=== PATIENT | female | born 1980 | race Caucasian/White ===

== ENCOUNTER 2019-01-10 05:17 | Inpatient (IN) ==
--- NOTE | 2019-01-09 16:53 | HISTORY AND PHYSICAL ---
HISTORY OF PRESENT ILLNESS: Patient 38-year-old female, G4, P1, A2, who is at 39 weeks gestation with a history of prior , for elective repeat . care is significant for advanced maternal age. Patient desires tubal sterilization. Tobacco: Positive use during care. Rubella status is nonimmune, and group B Streptococcus status was negative. PAST MEDICAL HISTORY: Significant for a prescription for Subutex that was used to during the course of her care. PAST SURGICAL HISTORY: Significant for x1. PAST OBSTETRICAL HISTORY: G4, P1, A2. Spontaneous AB x2. x1. GYNECOLOGICAL HISTORY: Menarche at age 16. REVIEW OF SYSTEMS: All systems reviewed and noncontributory. FAMILY HISTORY: Significant for ALS. SOCIAL HISTORY: Tobacco use: A half-pack per day. Alcohol use: None. MEDICATIONS: Subutex somewhere between 4 to 8 mg daily and the patient takes a vitamin daily. ALLERGIES: Keflex and Ceclor. PHYSICAL EXAMINATION: HEIGHT/WEIGHT: Height 5 feet 0 inches. Weight 131 pounds. VITAL SIGNS: Blood pressure 124/75, pulse of 72, respirations 20. heart rate 123. HEENT: Pupils equal, round, and reactive to light and accommodation. Extraocular movements intact. Oropharynx clear. NECK: Supple. No thyromegaly. LUNGS: Clear to auscultation. HEART: Regular rate and rhythm. ABDOMEN: Gravid. Nontender. EXTREMITIES: No clubbing, cyanosis, or edema noted. NEUROLOGIC: Cranial nerves 2 through 12 grossly intact. Motor 5/5. DTRs 2+ bilaterally. ASSESSMENT AND PLAN: 1. This is a 38-year-old, 4, parity 1, abortus 2, at 39 weeks gestation with history of prior section for elective repeat section. Patient counseled about the risks of surgery, including bleeding, infection, bowel or bladder injury. 2. Permanent sterilization. Patient has expressed desire for permanent sterilization and has signed tubal papers. Patient counseled about the permanency of the procedure, failure rate of 2 to 4 per 1000, as well as the availability of reversible alternatives, such as IUD, control pills, patches, etc. DATE OF SURGERY: Scheduled for 01/10/2019. cc: Edmar Patrick III, MD
[2019-01-10] MEDS ORDERED: BICITRA PO ONE (05:23)
[2019-01-10] MEDS ORDERED: CLINDAMYCIN 900 MG/D5W 900 MG/50 ML IVPB IV ONE (05:23)
[2019-01-10] MEDS: LR 1,000 ML IV SCH ×2 (05:40→07:02)
[2019-01-10 06:05] LABS: URINE SOURCE VOIDED
[2019-01-10 06:11] LABS: BILIRUBIN URINE NEGATIVE (NEGATIVE); BLOOD URINE NEGATIVE (NEGATIVE); CLARITY CLEAR (CLEAR); COLOR YELLOW; GLUCOSE URINE NEGATIVE (NEGATIVE); KETONE URINE NEGATIVE (NEGATIVE); LEUKOCYTES URINE NEGATIVE (NEGATIVE); NITRITE URINE NEGATIVE (NEGATIVE); PH URINE 6.5; PROTEIN URINE NEGATIVE (NEGATIVE); UROBILINOGEN URINE NORMAL
[2019-01-10] MEDS ORDERED: ZOFRAN ONE (06:30)
[2019-01-10] MEDS ORDERED: NEO-SYNEPHRINE ONE (06:30)
[2019-01-10] MEDS ORDERED: PITOCIN ONE ×2 (06:30→08:14)
[2019-01-10] MEDS ORDERED: DURAMORPH ONE (06:31)
[2019-01-10] MEDS ORDERED: SODIUM CHLORIDE 0.9% 20 ML ONE (06:34)
[2019-01-10 06:35] LABS: UR AMPHETAMINES QUAL NONE DETECTED (NONE DETECT); UR BARBITUATES QUAL NONE DETECTED (NONE DETECT); UR BENZODIAZEPIN QUAL NONE DETECTED (NONE DETECT); UR CANNABINOIDS QUAL NONE DETECTED (NONE DETECT); UR COCAINE QUAL NONE DETECTED (NONE DETECT); UR METHADONE QUAL NONE DETECTED (NONE DETECT); UR METHAMPHETAMINE QUAL NONE DETECTED (NONE DETECT); UR OPIATES QUAL NONE DETECTED (NONE DETECT); UR OXYCODONE QUAL NONE DETECTED (NONE DETECT); UR PCP QUAL NONE DETECTED (NONE DETECT); UR PROPOXYPHENE QUAL NONE DETECTED (NONE DETECT); UR TCA QUAL NONE DETECTED (NONE DETECT)
[2019-01-10 07:05] LABS: BASO# 0.05 X1000 (0.0-0.2); BASO% 0.3 % (0.0-0.8); EOS% 1.4 % (0.0-10.0); HEMATOCRIT 39.1 % (37.0-47.0); HEMOGLOBIN 13.1 g/dL (12.0-16.0); IMM GRAN# 0.31 X1000 (0.0-0.04); IMM GRAN% 2.1 % (0.0-0.5); LYMPH# 3.31 X1000 (1.2-3.4); LYMPH% 22.8 % (20.5-51.1); MCH 28.9 PG (27-31); MCHC 33.5 g/dL (33-37); MCV 86.3 FL (81-99); MONO# 0.93 X1000 (0.11-0.59); MONO% 6.4 % (1.7-9.3); MPV 12.6 FL (7.4-10.4); PLT 179 X1000 (130-400); RBC 4.53 XMIL (4.2-5.4); RDW 13.1 % (11.5-14.5)
[2019-01-10] MEDS ORDERED: FENTANYL ONE (07:45)
[2019-01-10] MEDS ORDERED: AMBIEN PO PRN (08:26)
[2019-01-10] MEDS ORDERED: MYLICON PO PRN (08:26)
[2019-01-10] MEDS ORDERED: DEMEROL PO PRN ×2 (08:26)
[2019-01-10] MEDS ORDERED: DEMEROL IM PRN (08:26)
[2019-01-10] MEDS ORDERED: PHENERGAN IM PRN (08:26)
[2019-01-10] MEDS ORDERED: PITOCIN 20 UNITS/NS 20 UNITS/1,000 ML IV.SOLN IV ONE (08:26)
[2019-01-10] MEDS ORDERED: PITOCIN IM PRN (08:26)
[2019-01-10] MEDS ORDERED: DULCOLAX PR PRN (08:26)
[2019-01-10] MEDS ORDERED: M-M-R II VACCINE SUBQ ONE (08:26)
[2019-01-10] MEDS ORDERED: BOOSTRIX VACCINE IM ONE (08:26)
[2019-01-10] MEDS ORDERED: NORCO-5 PO PRN (08:26)
[2019-01-10] MEDS ORDERED: HYDROXYZINE IM PRN (08:26)
[2019-01-10] MEDS ORDERED: PITOCIN 10 UNITS/NS 1,000 ML IV SCH (08:30)
[2019-01-10] MEDS: MYLICON PO SCH ×4 (09:16→22:10)
[2019-01-10] MEDS: PRECARE PO SCH (09:17)
[2019-01-10] MEDS: TORADOL IV SCH ×3 (09:49→22:10)
[2019-01-10] MEDS: MORPHINE IV PRN (12:16)
[2019-01-10] MEDS: SUBUTEX SL SCH (12:56)
[2019-01-10] MEDS: ATARAX PO PRN (12:57)
--- NOTE | 2019-01-10 15:26 | OPERATIVE NOTE ---
PROCEDURE DATE: 01/10/2019 PREOPERATIVE DIAGNOSIS: Intrauterine (IUP) at 39 and 0/7 weeks with history of C- section. For elective repeat section. Patient also desires permanent sterilization. POSTOPERATIVE DIAGNOSIS: Same as above with operative delivery of a female infant, 6 pounds 3 ounces, with 's of 9 and 10 at 0750 on 01/19/2019. PROCEDURE: Repeat low transverse and bilateral tubal ligation. SURGEON: MD Darnell. ASSIST: MD Carlos. ANESTHESIA: Spinal. MD Ismael. FINDINGS: Normal-appearing uterus, tubes and ovaries. COMPLICATIONS: None. ESTIMATED BLOOD LOSS: 400 mL. SPECIMENS: Removed. Right and left fallopian tube segments. DRAINS: Chaney to straight drain. COUNTS: All counts were correct x 3. INDICATIONS: Patient is a 38-year-old white female, G4, P1, A2, 39 weeks gestation with a history of prior who expressed desire for permanent sterilization after delivery. Patient counseled about the risks of surgery including bleeding, infection, bowel or bladder injury. Patient also counseled about the permanency of tubal ligation, failure rate of 2 to 10/999, as well as the availability of of reversible alternatives such as IUD, control pills, patches, etc. PROCEDURE DETAILS: Patient was taken to the Labor and Delivery OR, had spinal anesthesia placed and was placed in supine position with a roll under right hip. She was then prepped and draped in sterile fashion. Adequate anesthesia was noted by using Allis clamps on skin A Pfannenstiel skin incision was made in the lower abdomen using a scalpel. This was taken down sharply to the fascia layer. Fascia layer was then dissected and the incision was extended bilaterally by curved Byrd scissors and then blunt and sharp dissection was used to dissect superior and inferior aspects of the rectus fascia. Rectus muscles were then divided in midline. Peritoneal layer was entered bluntly. The peritoneal incision was extended superiorly and inferiorly with care taken to avoid the bladder. Bladder reflection was created using Metzenbaum scissors. Bladder blade was then placed into the abdominal cavity and then a transverse incision was made on lower uterine segment. Then, upon entry into the uterine cavity there was meconium-stained fluid noted. The hysterotomy incision was extended bilaterally by surgeon's fingers, the head was then elevated toward the hysterotomy site and with gentle fundal pressure the head was delivered atraumatically and bulb suctioned of nose and mouth. The rest of the body was delivered atraumatically with gentle fundal pressure. The umbilical cord was clamped twice and cut. Infant handed to nurse in attendance for delivery. Cord blood sample obtained at this time. Placenta was then manually extracted. Uterus was exteriorized. Wet lap was placed around the uterus. Dry lap was then used to curette the uterine cavity of clots and debris. Uterine incision was then closed using 0 chromic in a running, locking fashion x 1. Oozing noted on the left side of the incision, made hemostatic with [id number] stitches of 0 chromic. At this point in time, attention was then turned to the fallopian tubes and right fallopian tube was grasped near the isthmus. Small hole was made in the mesosalpinx and then the area of the tube was then ligated using 0 plain suture. This ligated portion was then excised using Metzenbaum scissors. Electrocautery was then used to cauterize the open ends of the fallopian tube and good hemostasis was noted. Attention was then turned to the left fallopian tube which was also grasped near the isthmus and the mesosalpinx was penetrated using electrocautery. 0 plain suture was then used to ligate a portion of the fallopian tube and then the Metzenbaum scissors then used to excise this portion of the fallopian tube and this was handed off to be placed in a specimen container. Electrocautery was used on the open ends of the fallopian tube and once again good hemostasis was noted. The posterior cul-de-sac was then irrigated copiously. The uterus was then replaced back into the abdominal cavity. Pericolic gutters were cleansed using moist lap sponge. The uterine incision and bladder reflection were inspected and good hemostasis was noted. The peritoneal layer was then closed using 2-0 chromic in a running fashion x 1. Then, the rectus muscle had two interrupted stitches of 2-0 chromic for closure. The fascia layer was then closed using 0 PDS in a running fashion x1. Subcutaneous layer was irrigated and then electrocautery was used to obtain hemostasis. The skin was then reapproximated using tremayne. Patient tolerated the procedure well. Was taken recovery room stable condition. All counts were correct x 3. cc: Edmar Patrick III, MD
[2019-01-10] MEDS: PITOCIN 10 UNITS/NS 1,000 ML IV SCH (17:07)
--- NOTE | 2019-01-10 19:44 | OB/GYN PROGRESS NOTE ---
Progress Note LEAD APPLIER - . 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 Progress Note: Vital Signs - 24 hr 01/10/19 05:50 01/10/19 08:30 01/10/19 08:40 Temperature 97.7 F 96.9 F L Pulse Rate 85 70 83 Respiratory Rate 20 20 20 Blood Pressure 139/85 97/54 Blood Pressure [Left Arm] 96/57 103/58 O2 Sat by Pulse Oximetry 99 97 97 01/10/19 08:50 01/10/19 09:00 01/10/19 09:10 Temperature Pulse Rate 64 67 59 L Respiratory Rate 20 20 20 Blood Pressure Blood Pressure [Left Arm] 112/67 116/70 117/58 O2 Sat by Pulse Oximetry 99 97 98 01/10/19 09:20 01/10/19 09:30 01/10/19 11:00 Temperature Pulse Rate 63 55 L 58 L Respiratory Rate 20 20 20 Blood Pressure 135/63 148/72 Blood Pressure [Left Arm] 122/63 O2 Sat by Pulse Oximetry 98 99 98 01/10/19 16:11 Temperature 98.4 F Pulse Rate 50 L Respiratory Rate 14 Blood Pressure 116/56 Blood Pressure [Left Arm] O2 Sat by Pulse Oximetry 96 Laboratory Results - last 24 hr 01/10/19 01/10/19 01/10/19 05:00 05:00 05:40 WBC RBC Hgb Hct MCV MCH MCHC RDW Std Deviation Plt Count MPV Immature Gran % (Auto) Neut % (Auto) Lymph % (Auto) Spencer % (Auto) Eos % (Auto) Baso % (Auto) Immature Gran # (Auto) Neut # (Auto) Lymph # (Auto) Spencer # (Auto) Eos # (Auto) Baso # (Auto) Urine Source VOIDED Urine Color YELLOW Urine Clarity CLEAR Urine pH 6.5 Ur Specific [place] 1.010 Urine Protein NEGATIVE Urine Ketones NEGATIVE Urine Blood NEGATIVE Urine Nitrite NEGATIVE Urine Bilirubin NEGATIVE Urine Urobilinogen NORMAL Urine WBC NEGATIVE Urine Glucose NEGATIVE Urine Opiates Screen NONE DETECTED Ur Oxycodone Screen NONE DETECTED Urine Methadone Screen NONE DETECTED U Propoxyphene Qual NONE DETECTED Ur Barbituates Screen NONE DETECTED Ur Tricyclics Screen NONE DETECTED Ur Phencyclidine Scrn NONE DETECTED Ur Amphetamines Screen NONE DETECTED U Methamphetamines Scrn NONE DETECTED U Benzodiazepines Scrn NONE DETECTED Urine Cocaine Screen NONE DETECTED U Cannabinoids Screen NONE DETECTED RPR NON-REACTIVE Blood Type Antibody Screen 01/10/19 01/10/19 05:40 05:40 WBC 14.50 H RBC 4.53 Hgb 13.1 Hct 39.1 MCV 86.3 MCH 28.9 MCHC 33.5 RDW Std Deviation 13.1 Plt Count 179 MPV 12.6 H Immature Gran % (Auto) 2.1 H Neut % (Auto) 67.0 Lymph % (Auto) 22.8 Spencer % (Auto) 6.4 Eos % (Auto) 1.4 Baso % (Auto) 0.3 Immature Gran # (Auto) 0.31 H Neut # (Auto) 9.70 H Lymph # (Auto) 3.31 Spencer # (Auto) 0.93 H Eos # (Auto) 0.20 Baso # (Auto) 0.05 Urine Source Urine Color Urine Clarity Urine pH Ur Specific [place] Urine Protein Urine Ketones Urine Blood Urine Nitrite Urine Bilirubin Urine Urobilinogen Urine WBC Urine Glucose Urine Opiates Screen Ur Oxycodone Screen Urine Methadone Screen U Propoxyphene Qual Ur Barbituates Screen Ur Tricyclics Screen Ur Phencyclidine Scrn Ur Amphetamines Screen U Methamphetamines Scrn U Benzodiazepines Scrn Urine Cocaine Screen U Cannabinoids Screen RPR Blood Type A POSITIVE Antibody Screen NEGATIVE NOS Pt c/o pain. She states as long as she does not move she is ok. no N/V Tolerating po well O: Abd: soft erlinda tender abdominal binder in place A: POD#0 s/p RLTCS/BTL P: Cont routine post-op mgmt.
[2019-01-10] MEDS: PERICOLACE PO SCH (22:10)
[2019-01-11] MEDS: PITOCIN 10 UNITS/NS 1,000 ML IV SCH (00:59)
[2019-01-11] MEDS: MORPHINE IV PRN ×2 (04:16→18:10)
[2019-01-11] MEDS: TORADOL IV SCH (04:18)
[2019-01-11] MEDS ORDERED: DILAUDID IV ONE (04:37)
[2019-01-11 05:58] LABS: BASO# 0.03 X1000 (0.0-0.2); BASO% 0.2 % (0.0-0.8); EOS# 0.19 X1000 (0.0-0.7); EOS% 1.2 % (0.0-10.0); HEMATOCRIT 38.1 % (37.0-47.0); HEMOGLOBIN 12.6 g/dL (12.0-16.0); IMM GRAN% 0.6 % (0.0-0.5); LYMPH# 2.55 X1000 (1.2-3.4); LYMPH% 16.2 % (20.5-51.1); MCH 28.9 PG (27-31); MCHC 33.1 g/dL (33-37); MCV 87.4 FL (81-99); MONO# 0.92 X1000 (0.11-0.59); MONO% 5.8 % (1.7-9.3); MPV 11.6 FL (7.4-10.4); NEUT# 11.96 X1000 (1.4-6.5); PLT 172 X1000 (130-400); RBC 4.36 XMIL (4.2-5.4); RDW 13.6 % (11.5-14.5); WBC 15.75 X1000 (4.8-10.8)
[2019-01-11] MEDS ORDERED: LR 1,000 ML IV SCH (08:26)
[2019-01-11] MEDS: SUBUTEX SL SCH (08:42)
[2019-01-11] MEDS: MOTRIN PO PRN ×2 (08:43→15:45)
[2019-01-11] MEDS: PRECARE PO SCH (08:43)
[2019-01-11] MEDS: NORCO-10 PO PRN ×2 (08:44→15:13)
[2019-01-11] MEDS: MYLICON PO SCH ×4 (08:44→20:10)
[2019-01-11] MEDS: ATARAX PO PRN (15:45)
[2019-01-11] MEDS ORDERED: PERCOCET-10 PO PRN (17:42)
[2019-01-11] MEDS: PERICOLACE PO SCH (20:10)
[2019-01-12] MEDS: SUBUTEX SL SCH (09:10)
[2019-01-12] MEDS: PRECARE PO SCH (09:11)
[2019-01-12] MEDS: MOTRIN PO PRN ×2 (09:11→17:21)
[2019-01-12] MEDS: MYLICON PO SCH ×3 (09:12→17:52)
[2019-01-13] MEDS: PERICOLACE PO SCH (00:43)
[2019-01-13] MEDS: MYLICON PO SCH ×3 (00:43→14:52)
[2019-01-13] MEDS: MOTRIN PO PRN (00:43)
[2019-01-13] MEDS: PRECARE PO SCH (09:24)
[2019-01-13] MEDS: SUBUTEX SL SCH (09:25)
--- NOTE | 2019-01-13 09:46 | DISCHARGE SUMMARY ---
ADMISSION DATE: 01/10/2019 DISCHARGE DATE: 01/13/2019 ADMISSION DIAGNOSIS: A 38-year-old, G4, P1, A2 at 39 weeks gestation with history of prior C- section for elective repeat . ADDITIONAL DIAGNOSIS: Patient desires permanent sterilization. FINAL DIAGNOSIS: A 38-year-old, G4, P1, A2 at 39 weeks gestation with history of prior for elective repeat with operative delivery of a female 6 pounds 3 ounces. 's of 9 and 10 at 07:50 on 01/10/2019. PROCEDURES: Repeat low transverse and bilateral tubal ligation. BRIEF HISTORY: The patient is a 38-year-old female, G4, P1, A2, at 39 weeks gestation with a history of prior for elective repeat . care significant for advanced maternal age. Patient also expressed desire for permanent sterilization. She had tobacco use during the . Also she is on medication for substance abuse under the care of a physician giving her Subutex. Rubella status is nonimmune. Group B strep culture was negative. PAST MEDICAL HISTORY: Significant for care for substance abuse that continued during the course of her care. PAST SURGICAL HISTORY: Significant for x1. PAST OB HISTORY: G4, P1, A2. Spontaneous AB x2. x1. UPTWIST SPINNER HISTORY: Menarche at age 16. REVIEW OF SYSTEMS: All systems reviewed and noncontributory. FAMILY HISTORY: Significant for ALS. SOCIAL HISTORY: Tobacco use, half pack per day. Alcohol use none. MEDICATIONS: Subutex somewhere between 4 to 8 mg daily as well as a vitamin. ALLERGIES: Keflex and Ceclor. PHYSICAL EXAMINATION: Vital Signs: Height 5 feet 0 inches, weight 131 pounds. Blood pressure 124/75, pulse of 72, respirations 20. heart rate 123. HEENT: Pupils equal, round, and reactive to light accommodation. Extraocular movements intact. Oropharynx clear. Neck: Supple. No thyromegaly. Lungs: Clear to auscultation. Heart: Regular rate and rhythm. Abdomen: Gravid, nontender. Extremities: No clubbing, cyanosis, or edema noted. Neurologic: Cranial nerves 2-12 grossly intact. Motor 5/5. DTRs 2+ bilaterally. ASSESSMENT AND PLAN: A 38-year-old, G4, P1, A2, at 39 weeks gestation with a history of prior C- section for elective repeat . Patient also desires permanent sterilization. Then will performed tubal ligation at the time of . HOSPITAL COURSE: The patient had operative delivery of a female 6 pounds 3 ounces, 's of 9 and 10 at 7:50 on 01/10/2019 and tubes were tied at the time of . On postoperative hospital course, it was difficult to manage patient's pain during the initial part of her recovery, but managed to use Toradol and other IV medications along with oral medications to help with relief of pain. The patient became ambulatory and her postop hemoglobin was 12.6 and postop hematocrit was 38.1. She had continually advanced on her diet and became ambulatory. On postop day #3, she was afebrile with stable vital signs, mild lochia and her pain management was much improved. It was felt at this time patient could be discharged home. DISCHARGE PLAN: The patient was discharged home. She will follow back up on 01/17/2019 in the office for staple removal. Patient given lifting precautions for 6 weeks. DISCHARGE MEDICATIONS: The patient is to continue with her Subutex as per her other physician's instructions, and she was given prescription for Percocet 10, dispensed 20 with no refills. Colace and Motrin as well. cc: Edmar Patrick III, MD
[2019-01-13] MEDS ORDERED: PNEUMOVAX 23 IM ONE (10:23)
[2019-01-13 14:48] VITALS: BP 147/78
== END 2019-01-13 11:30 | disposition home or self-care (01) | DRG 784 ==
LOC: P.LD 05:17
PROVIDERS: ADMIT Obstetrics & Gynecology; ATTEND Obstetrics & Gynecology
CPT/HCPCS: 80104; 80301; 80305; 81003; 85025; 86592; 86850; 86900; 86901; 90707; 90732; 94799; A9270; G0431; G0434; G0477; J1170; J1885; J2270; J2274; J2275; J2370; J2405; J2590; J3010; J7120; Q9974